=== PATIENT | female | born 1990 | race Caucasian/White ===

== ENCOUNTER 2021-05-31 16:17 | Emergency (ER) | payer OTHER ==
[~2021-05-31 16:17] MED LIST: COLACE100 MG PO; FERROUS SULFAT325 MG PO; LOESTRIN 21 1-1 EACH PO; MOTRIN600 MG PO; PRENATAL FORMU1 EACH PO
[2021-05-31 18:17] LABS: BILIRUBIN NEGATIVE (NEGATIVE); BLOOD NEGATIVE Ery/uL (NEGATIVE); CLARITY CLEAR (CLEAR); COLOR YELLOW (YELLOW); GLUCOSE (U) NORMAL (NORMAL); LEUKOCYTES NEGATIVE Leu/uL (NEGATIVE); NITRITE NEGATIVE (NEGATIVE); PROTEIN NEGATIVE (NEGATIVE); UROBILINOGEN 0.2 mg/dL (0.2-1.0); pH 5.5 (5.0-9.0)
[2021-05-31 18:22] LABS: BASOPHIL 0.4 % (0-2); EOSINOPHIL 0.3 % (0-5); HCT 41.4 % (37.0-47.0); HGB 13.8 g/dl (12.5-16.0); LYMPHOCYTE 23.4 % (15-48); MCH 29.7 pg (25.0-31.0); MCHC 33.3 g/dL (32.0-36.0); MONOCYTE 9.1 % (0-12); MPV 9.7 fL (6.0-9.5); NEUTROPHIL 66.5 % (41-80); NRBC 0; PLT 220 K/uL (150-400); RBC 4.65 M/uL (4.20-5.40); RDW 12.2 % (11.5-14.0); WBC 6.7 K/uL (4.0-10.5)
[2021-05-31 18:42] LABS: ALBUMIN 3.8 g/dL (3.4-5.0); BILIRUBIN - TOTAL 0.1 mg/dL (0.2-1.0); BUN/CREAT RATIO (CALC) 15.6 RATIO; CREATININE 0.64 mg/dL (0.51-0.95); GLOBULIN (CALCULATION) 4.2 g/dL; POTASSIUM 4.1 mmol/L (3.5-5.1)
== END 2021-05-31 21:02 | disposition home or self-care (01) ==
LOC: FER 16:17
PROVIDERS: Nurse Practitioner Family
DX: O20.9 Hemorrhage in early pregnancy, unspecified (principal); O99.891 Other specified diseases and conditions complicating pregnancy; R10.84 Generalized abdominal pain; R53.83 Other fatigue; R11.0 Nausea; Z3A.00 Weeks of gestation of pregnancy not specified
CPT/HCPCS: 36415; 80053; 81003; 84702; 85025; 99284; J7030

== ENCOUNTER 2021-12-02 10:19 | Emergency (ER) | payer OTHER ==
[2021-12-02 11:39] LABS: BASOPHIL 0.3 % (0-2); EOSINOPHIL 0.3 % (0-5); HCT 38.6 % (37.0-47.0); HGB 12.8 g/dl (12.5-16.0); LYMPHOCYTE 26.8 % (15-48); MCH 29.5 pg (25.0-31.0); MCHC 33.2 g/dL (32.0-36.0); MCV 88.9 fL (78.0-100.0); MONOCYTE 9.4 % (0-12); MPV 10.1 fL (6.0-9.5); NEUTROPHIL 62.9 % (41-80); NRBC 0; PLT 186 K/uL (150-400); RBC 4.34 M/uL (4.20-5.40); WBC 6.3 K/uL (4.0-10.5)
[2021-12-02 11:39] LABS: BILIRUBIN NEGATIVE (NEGATIVE); BLOOD NEGATIVE Ery/uL (NEGATIVE); CLARITY CLEAR (CLEAR); COLOR YELLOW (YELLOW); GLUCOSE (U) NORMAL (NORMAL); LEUKOCYTES NEGATIVE Leu/uL (NEGATIVE); NITRITE NEGATIVE (NEGATIVE); PROTEIN NEGATIVE (NEGATIVE); SPECIFIC GRAVITY 1.025 (1.001-1.030); UROBILINOGEN 0.2 mg/dL (0.2-1.0)
[2021-12-02 11:56] LABS: CREATININE 0.6 mg/dL (0.51-0.95); POTASSIUM 4.2 mmol/L (3.5-5.1)
== END 2021-12-02 14:12 | disposition home or self-care (01) ==
LOC: FER 10:19
PROVIDERS: Internal Medicine
DX: O99.891 Other specified diseases and conditions complicating pregnancy (principal); R10.2 Pelvic and perineal pain; Z3A.01 Less than 8 weeks gestation of pregnancy
CPT/HCPCS: 36415; 76817; 80048; 81003; 83690; 84702; 85025

== ENCOUNTER 2021-12-23 04:55 | Emergency (ER) | payer OTHER ==
[2021-12-23 06:23] LABS: HCT 40.6 % (37.0-47.0); HGB 13.7 g/dl (12.5-16.0); MCH 30.1 pg (25.0-31.0); MCHC 33.7 g/dL (32.0-36.0); MCV 89.2 fL (78.0-100.0); MPV 10.1 fL (6.0-9.5); RBC 4.55 M/uL (4.20-5.40); WBC 8.5 K/uL (4.0-10.5)
[2021-12-23 06:23] LABS: BILIRUBIN NEGATIVE (NEGATIVE); BLOOD NEGATIVE Ery/uL (NEGATIVE); CLARITY CLEAR (CLEAR); COLOR YELLOW (YELLOW); GLUCOSE (U) NORMAL (NORMAL); LEUKOCYTES NEGATIVE Leu/uL (NEGATIVE); NITRITE NEGATIVE (NEGATIVE); PROTEIN NEGATIVE (NEGATIVE); UROBILINOGEN 0.2 mg/dL (0.2-1.0)
[2021-12-23] MEDS ORDERED: UNISOM25 MG PO (06:36)
[2021-12-23 06:51] LABS: BUN/CREAT RATIO (CALC) 18.2 RATIO; CREATININE 0.55 mg/dL (0.51-0.95); POTASSIUM 3.9 mmol/L (3.5-5.1)
== END 2021-12-23 08:17 | disposition home or self-care (01) ==
LOC: FER 04:55
PROVIDERS: Emergency Medicine
DX: R11.2 Nausea with vomiting, unspecified (principal); Z20.822 Contact with and (suspected) exposure to COVID-19
CPT/HCPCS: 36415; 80048; 81003; 99284; J7030; U0002